=== PATIENT | male | born 1950 ===

== ENCOUNTER 2018-06-15 11:20 | Day surgery (SDC) | payer OTHER | END 2018-06-15 17:25 | disposition home or self-care (01) | LOC: AMB-ENDOS 11:20 | DX: D12.3 Benign neoplasm of transverse colon (principal) ==

== ENCOUNTER 2018-07-07 10:15 | Inpatient (IN) | payer OTHER ==
[~2018-07-07] VITALS: Ht 172.7 cm; Wt 101.2 kg
[2018-07-07] MEDS ORDERED: METFORMIN HCL500 MG PO (13:48)
[2018-07-07] MEDS ORDERED: TAMS0.4C PO (13:48)
[2018-07-07] MEDS ORDERED: LOSARTAN-HCTZ1 EAC1 PO (13:48)
[2018-07-07] MEDS ORDERED: CLONAZEPAM0.5 MG PO (13:49)
[2018-07-07] MEDS ORDERED: ATORVASTATIN CA20 MG PO (13:49)
[2018-07-23] MEDS ORDERED: IMODIUM A-D2 M2 PO (08:27)
[2018-07-23] MEDS ORDERED: OXYC1TAB9 PO (08:28)
[2018-07-23] MEDS ORDERED: INTESTINEX680 M1 PO (08:28)
[2018-07-23] MEDS ORDERED: BACTRIM DS TAB1 EACH PO (08:28)
== END 2018-07-23 14:18 | disposition home health service (06) | DRG 331 ==
LOC: SURH 07-19 05:58 → O/R 07-19 05:58 → SURH 07-19 10:15
PROVIDERS: Surgery
PROC: 0DTP4ZZ Resection of Rectum, Percutaneous Endoscopic Approach (ICD-10-PCS; 2018-07-19)
PROC: 07TC4ZZ Resection of Pelvis Lymphatic, Percutaneous Endoscopic Approach (ICD-10-PCS; 2018-07-19)
PROC: 0D1B4Z4 Bypass Ileum to Cutaneous, Percutaneous Endoscopic Approach (ICD-10-PCS; 2018-07-19)
PROC: 0DJD8ZZ Inspection of Lower Intestinal Tract, Via Natural or Artificial Opening Endoscopic (ICD-10-PCS; 2018-07-19)
PROC: 0DTN4ZZ Resection of Sigmoid Colon, Percutaneous Endoscopic Approach (ICD-10-PCS; principal; 2018-07-19 16:00)
DX: C20 Malignant neoplasm of rectum (principal); R59.0 Localized enlarged lymph nodes; R33.8 Other retention of urine